=== PATIENT | male | born 1975 | race Caucasian/White ===

== ENCOUNTER 2021-12-29 21:00 | Emergency (ER) | payer BC ==
[~2021-12-29] VITALS: Ht 177.8 cm; Wt 95.2 kg
[2021-12-29] MEDS ORDERED: ALPRAZOLAM0.5 MG PO (22:06)
[2021-12-29] MEDS ORDERED: ESCITALOPRAM OX10 MG PO (22:06)
[2021-12-29] MEDS ORDERED: ZYRTEC10 M3 PO (22:06)
[2021-12-29] MEDS ORDERED: BUTALB-ACETAMI1 EACH PO (22:58)
[2021-12-29] MEDS ORDERED: ONDANSETRON ODT8 MG PO (22:58)
== END 2021-12-29 23:20 | disposition home or self-care (01) ==
LOC: ED 21:00
DX: G43.909 Migraine, unspecified, not intractable, without status migrainosus (principal); Z79.899 Other long term (current) drug therapy
CPT/HCPCS: 99283; A9270

== ENCOUNTER 2025-06-17 16:29 | Emergency (ER) | payer OTHER ==
[~2025-06-17] VITALS: Ht 177.8 cm; Wt 67.3 kg
[~2025-06-17 16:29] MED LIST: ALPRAZOLAM0.5 MG PO; BUTALB-ACETAMI1 EACH PO; ESCITALOPRAM OX10 MG PO; ONDANSETRON ODT8 MG PO; ZYRTEC10 M3 PO
[2025-06-17 17:26] LABS: BASOPHILS 0.3 % (0.2-1.2); EOSINOPHILS 3.5 % (0.8-7.0); LYMPHOCYTES 16.6 % (21.8-53.1); MCH 31.8 PG (25.7-32.2); MCHC 34.0 g/dL (32.3-36.5); MCV 93.4 fL (79.0-92.2); MONOCYTES 8.1 % (5.3-12.2); NEUTROPHILS 71.2 % (34.0-67.9); RBC 5.29 M/uL (4.63-6.08)
[2025-06-17 17:50] LABS: ALCOHOL, MEDICAL <3 ng/dL (<3); ALT (SGPT) 42 U/L (14-59); AST (SGOT) 24 U/L (15-37); GLOMERULAR FILTRATION RATE,EST 113 mL/min (>60); PROTEIN, TOTAL 8.4 g/dL (6.4-8.2); TSH, 3RD GENERATION 1.362 uIU/mL (0.358-3.740); UREA NITROGEN 19 mg/dL (7-18)
[2025-06-17 20:58] LABS: BLOOD/HGB, URINE TRACE-I (Negative); KETONE, URINE >=80 (Negative); LEUK ESTERASE, URINE NEGATIVE (negative); NITRITE, URINE NEGATIVE (negative)
[2025-06-17 21:02] LABS: BACTERIA, URINE NONE SEEN /hpf (negative); CASTS, URINE NONE SEEN \\lpf; CRYSTALS, URINE CALCIUM OXALATE 1+ (0-1+); EPITHELIAL CELLS, URINE 0 /lpf (0-1+); REFLEX CULTURE, URINE No (No)
[2025-06-17 21:22] LABS: AMPHETAMINES, URINE NEGATIVE (NEGATIVE); BARBITURATES, URINE NEGATIVE (NEGATIVE); BENZODIAZEPINE, URINE NEGATIVE (NEGATIVE); CANNABINOID, URINE POSITIVE (NEGATIVE); COCAINE, URINE NEGATIVE (NEGATIVE); ECSTASY, URINE NEGATIVE (NEGATIVE); FENTANYL, URINE NEGATIVE (NEGATIVE); METHADONE, URINE NEGATIVE (NEGATIVE); OPIATES, URINE NEGATIVE (NEGATIVE); OXYCODONE, URINE NEGATIVE (NEGATIVE); PHENCYCLIDINE, URINE NEGATIVE (NEGATIVE)
[2025-06-19 10:40] VITALS: BP 115/71
== END 2025-06-19 10:40 ==
LOC: ED 16:29
PROVIDERS: Emergency Medicine
DX: R45.851 Suicidal ideations (principal)
CPT/HCPCS: 36415; 80053; 80307; 81001; 84443; 85025; 99285; G0480

== ENCOUNTER 2025-07-07 21:25 | Emergency (ER) | payer OTHER ==
[~2025-07-07] VITALS: Ht 177.8 cm; Wt 67.3 kg
--- OUTSIDE RECORDS SUMMARY | 2025-07-07 21:32 | XMS ---
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 E.Radha VISIT COUNT (12 MO.) [address] TOTAL 3 NOTE: Visits indicate total known visits. ED/UCC VISIT TRACKING (12 MO.) 07/07/2025 21:25 [facility] [place] TYPE: Emergency COMPLAINT: - CONSTIPATION 06/17/2025 16:30 [facility] [place] TYPE: Emergency COMPLAINT: - SUICIDAL DIAGNOSES: - Suicidal ideations 04/08/2025 11:44 [facility] [place] TYPE: Emergency DIAGNOSES: - Reaction to severe stress, unspecified - MANIAC EPISODE NOT FEELING WELL - SI NOT FEELING WELL INPATIENT VISIT TRACKING (12 MO.) 06/19/2025 14:35 [facility] [place] TYPE: Psychiatric Services DIAGNOSES: 0. Major depressive disorder, recurrent, severe with psychotic symptoms 1. Major depressive disorder, recurrent, severe with psychotic symptoms 2. COVID-19 2. Diverticulitis of intestine, part unspecified, without perforation or abscess without bleeding 2. Other specified bacterial diseases 2. Personal history of suicidal behavior 2. Suicidal ideations [email or web address]
[2025-07-07] MEDS ORDERED: BUPROPION XL300 MG (23:12)
[2025-07-07] MEDS ORDERED: KETOCONAZOLE120 ML (23:13)
[2025-07-07] MEDS ORDERED: QUETIAPINE FUM300 MG (23:13)
[2025-07-07] MEDS ORDERED: DULOXETINE HCL20 MG (23:13)
[2025-07-07] MEDS ORDERED: ESZOPICLONE1 MG (23:13)
[2025-07-07 23:27] LABS: BASOPHILS 0.2 % (0.2-1.2); EOSINOPHILS 4.3 % (0.8-7.0); LYMPHOCYTES 32.7 % (21.8-53.1); MCH 31.5 PG (25.7-32.2); MCHC 34.2 g/dL (32.3-36.5); MCV 92.2 fL (79.0-92.2); MONOCYTES 7.0 % (5.3-12.2); NEUTROPHILS 55.6 % (34.0-67.9); RBC 4.85 M/uL (4.63-6.08)
[2025-07-07 23:48] LABS: ALT (SGPT) 54.0 U/L (14-59); AST (SGOT) 31.0 U/L (15-37); GLOMERULAR FILTRATION RATE,EST 98.0 mL/min (>60); PROTEIN, TOTAL 7.5 g/dL (6.4-8.2); UREA NITROGEN 12.0 mg/dL (7-18)
[2025-07-08] MEDS ORDERED: LACTATED RINGER'S 1,000 ML IV ONE (01:15)
[2025-07-08] MEDS ORDERED: KETOROLAC TROMETHAMINE 30 MG/ML VIAL IV ONE (01:45)
[2025-07-08 03:36] VITALS: BP 124/77
== END 2025-07-08 03:34 | disposition home or self-care (01) ==
LOC: ED 21:25
PROVIDERS: Internal Medicine
DX: K59.00 Constipation, unspecified (principal)
CPT/HCPCS: 74018; 80053; 83690; 85025; 96374; 99285-25; J1885; J7121